=== PATIENT | female | born 1955 | race Hispanic/Latino ===

== ENCOUNTER 2020-05-31 10:33 | Inpatient (IN) | payer BC, OTHER ==
[~2020-05-31] VITALS: Ht 154.9 cm; Wt 87.6 kg
[2020-05-31 12:40] LABS: BASOPHILS % (AUTO) 0.3 % (0.0-5.0); EOSINOPHILS % (AUTO) 2.2 % (0.0-8.0); HEMATOCRIT 40.7 % (36-48); LYMPHOCYTES % (AUTO) 11.5 % (21.0-51.0); MEAN CORPUSCULAR HEMOGLOBIN 30.4 pg (27.0-33.0); MEAN CORPUSCULAR HGB CONC 34.2 g/dL (32.0-36.0); MEAN CORPUSCULAR VOLUME 89.1 fL (79-99); MONOCYTES % (AUTO) 8.8 % (3.0-13.0); NEUTROPHILS % (AUTO) 76.9 % (40.0-77.0); PLATELET COUNT (AUTO) 218 K/uL (130-400); RED BLOOD CELL COUNT(AUTO) 4.57 MIL/uL (4.00-5.50); RED CELL DISTRIBUTION WIDTH 12.7 % (11.0-15.5); WHITE BLOOD COUNT (AUTO) 9.6 K/uL (4.8-10.8)
[2020-05-31] MEDS ORDERED: AZITHROMYCIN 500MG+NS 250ML 250 ML IV ONE (12:58)
[2020-05-31] MEDS ORDERED: DEXAMETHASONE 4 MG TAB ONE (12:58)
[2020-05-31 13:06] LABS: ALBUMIN 2.3 g/dL (3.5-5.0); BILIRUBIN,TOTAL 1.3 mg/dL (0.2-1.0); CREATININE 1.4 mg/dL (0.5-1.5); POTASSIUM 3.8 mmol/L (3.5-5.1)
[2020-05-31] MEDS ORDERED: IOHEXOL-350 75 ML VIAL IV ONE (14:02)
[2020-05-31] MEDS ORDERED: ERGOCALCIFEROL (VITAMIN D2) 50,000 UNIT CAPSULE PO ONE (16:30)
[2020-05-31] MEDS: CEFTRIAXONE SODIUM 1 GM IVP SCH (16:30)
[2020-05-31] MEDS ORDERED: DOXYCYCLINE 100MG+NS 250ML IV SCH (16:30)
[2020-05-31] MEDS ORDERED: ERGOCALCIFEROL (VITAMIN D2) 50,000 UNIT CAPSULE ONE (16:57)
[2020-05-31] MEDS ORDERED: CEFTRIAXONE SODIUM 1 GM ONE (16:58)
[2020-05-31] MEDS ORDERED: SODIUM CHLORIDE 0.9% 100 ML IV ONE (16:58)
[2020-05-31] MEDS ORDERED: DOXYCYCLINE 100MG+NS 250ML 250 ML IV ONE (16:58)
[2020-05-31] MEDS: PHARMACY COMMUNICATION MISC SCH (17:00)
[2020-05-31] MEDS ORDERED: ONDANSETRON HCL 4 MG/2 ML VIAL IVP PRN (17:15)
[2020-05-31] MEDS ORDERED: ACETAMINOPHEN 325 MG TAB PO PRN (17:15)
[2020-05-31 17:20] LABS: HEMOGLOBIN A1C 7.1 % (4.0-6.0)
[2020-05-31] MEDS: METHYLPREDNISOLONE SOD SUCC 40MG/ML 1ML IVP SCH (21:00)
[2020-05-31] MEDS: DOXYCYCLINE 100MG+NS 250ML 250 ML IV SCH (21:00)
[2020-05-31] MEDS: ENOXAPARIN SODIUM 100 MG/1 ML SQ SCH (21:00)
[2020-05-31] MEDS ORDERED: ENOXAPARIN SODIUM 80 MG/0.8 ML SQ ONE (21:50)
[2020-05-31] MEDS ORDERED: METHYLPREDNISOLONE SOD SUCC 40MG/ML 1ML ONE (21:51)
[2020-06-01] MEDS: PHARMACY COMMUNICATION MISC SCH ×4 (01:00→19:39)
[2020-06-01] MEDS: CEFTRIAXONE SODIUM 1 GM IVP SCH ×2 (04:30→16:30)
[2020-06-01 05:14] LABS: BASOPHILS % (AUTO) 0.2 % (0.0-5.0); EOSINOPHILS % (AUTO) 0.1 % (0.0-8.0); HEMATOCRIT 42.4 % (36-48); LYMPHOCYTES % (AUTO) 15.8 % (21.0-51.0); MEAN CORPUSCULAR HEMOGLOBIN 29.8 pg (27.0-33.0); MEAN CORPUSCULAR VOLUME 90.2 fL (79-99); MONOCYTES % (AUTO) 2.6 % (3.0-13.0); NEUTROPHILS % (AUTO) 80.6 % (40.0-77.0); PLATELET COUNT (AUTO) 229 K/uL (130-400); RED CELL DISTRIBUTION WIDTH 12.6 % (11.0-15.5); WHITE BLOOD COUNT (AUTO) 8.9 K/uL (4.8-10.8)
[2020-06-01 05:45] LABS: ALBUMIN 2.3 g/dL (3.5-5.0); BILIRUBIN,TOTAL 0.7 mg/dL (0.2-1.0); CREATININE 1.3 mg/dL (0.5-1.5); POTASSIUM 3.5 mmol/L (3.5-5.1); TOTAL PROTEIN, SERUM 8.4 g/dL (6.0-8.3)
[2020-06-01 05:57] LABS: CRP QUANTITATIVE 217.6 mg/L (0.00-9.0)
[2020-06-01] MEDS ORDERED: METHYLPREDNISOLONE SOD SUCC 40MG/ML 1ML ONE (08:25)
[2020-06-01] MEDS ORDERED: ENOXAPARIN SODIUM 100 MG/1 ML SQ ONE (08:25)
[2020-06-01] MEDS ORDERED: ZINC SULFATE 220 CAPSULE ONE (08:26)
[2020-06-01] MEDS ORDERED: DOXYCYCLINE 100MG+NS 250ML 250 ML IV ONE (08:26)
[2020-06-01] MEDS ORDERED: ZINC SULFATE 220 CAPSULE PO SCH (09:00)
[2020-06-01] MEDS: DOXYCYCLINE 100MG+NS 250ML 250 ML IV SCH (09:00)
[2020-06-01] MEDS: METHYLPREDNISOLONE SOD SUCC 40MG/ML 1ML IVP SCH ×3 (09:00→20:14)
[2020-06-01] MEDS: ENOXAPARIN SODIUM 100 MG/1 ML SQ SCH ×2 (09:00→20:15)
[2020-06-01] MEDS: ASCORBIC ACID 500 MG TAB PO SCH (09:00)
[2020-06-01 12:21] VITALS: BP 110/68
[2020-06-01] MEDS ORDERED: AEC81 PO (14:32)
[2020-06-01 16:06] VITALS: BP 129/89
--- NOTE | 2020-06-01 17:20 | NUR ---
INITIAL SW spoke with patient. She states she lives alone. No home services or DME. Patient is able to complete ADL's independently and drives. 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 CP is MD at [facility]. [facility]acy [facility] in [place]. DCP is home. Addendum: 06/01/20 at 1723 by VINI DOMINGUEZ SS Amended: Links added.
[2020-06-01] MEDS: DOXYCYCLINE HYCLATE 100 MG TABLET PO SCH (20:15)
[2020-06-01] MEDS: FAMOTIDINE 20MG TAB 20 MG TAB PO SCH (20:15)
[2020-06-01 20:24] VITALS: BP 116/63
[2020-06-02] VITALS (7 sets, daily range): BP systolic 107–138; BP diastolic 60–92
[2020-06-02] MEDS: CEFTRIAXONE SODIUM 1 GM IVP SCH ×2 (04:15→15:45)
--- NOTE | 2020-06-02 05:56 | NUR ---
Bradycardia Patient HR was dropping as low as 37 while sleeping. When she was checked on her HR would rise to mid 50s. A couple of minutes after being awaken her HR jumped to 130s while in the restroom and on the way back she called out stating that she feels sweaty, clammy, & light-headed. Her blood sugar was checked and it was 166. Her vitals were checked as well (HR 64, O2 96% on room, & BP 116/64). When asked about her medical history, she stated that she has not been diagnosed with anything. She was informed to call now for assistance when getting up to go to the restroom for her safety. She is in her bed resting peacefully now showing no S/S of distress. Vitals are stable & she is being closely monitored.
[2020-06-02 07:00] LABS: ALBUMIN 2.2 g/dL (3.5-5.0); BILIRUBIN,TOTAL 0.4 mg/dL (0.2-1.0); CREATININE 1.4 mg/dL (0.5-1.5); CRP QUANTITATIVE 106.3 mg/L (0.00-9.0); TOTAL PROTEIN, SERUM 7.9 g/dL (6.0-8.3)
[2020-06-02] MEDS: METHYLPREDNISOLONE SOD SUCC 40MG/ML 1ML IVP SCH ×3 (08:42→19:59)
[2020-06-02] MEDS: DOXYCYCLINE HYCLATE 100 MG TABLET PO SCH ×2 (08:42→20:00)
[2020-06-02] MEDS: ASCORBIC ACID 500 MG TAB PO SCH (08:43)
[2020-06-02] MEDS: PHARMACY COMMUNICATION MISC SCH ×3 (09:00→20:00)
[2020-06-02 09:52] LABS: CREATINE KINASE, TOTAL 74 U/L (21-232); MYOGLOBIN 54 ng/mL (10-92); TROPONIN I < 0.04 ng/mL (0.00-0.06)
[2020-06-02] MEDS: ENOXAPARIN SODIUM 100 MG/1 ML SQ SCH ×2 (10:44→20:00)
[2020-06-02] MEDS: ZINC SULFATE 220 CAPSULE PO SCH (11:04)
[2020-06-02 11:43] LABS: MAGNESIUM 2.1 mg/dL (1.80-2.40); THYROID STIMULATING HORMONE 0.44 uIU/mL (0.36-3.74)
[2020-06-02 15:41] LABS: BASOPHILS % (AUTO) 0.1 % (0.0-5.0); HEMATOCRIT 42.5 % (36-48); LYMPHOCYTES % (AUTO) 10.4 % (21.0-51.0); MEAN CORPUSCULAR HEMOGLOBIN 30.2 pg (27.0-33.0); MEAN CORPUSCULAR HGB CONC 32.5 g/dL (32.0-36.0); MONOCYTES % (AUTO) 2.8 % (3.0-13.0); NEUTROPHILS % (AUTO) 86.1 % (40.0-77.0); PLATELET COUNT (AUTO) 227 K/uL (130-400); RED BLOOD CELL COUNT(AUTO) 4.57 MIL/uL (4.00-5.50); RED CELL DISTRIBUTION WIDTH 13.2 % (11.0-15.5); WHITE BLOOD COUNT (AUTO) 14.1 K/uL (4.8-10.8)
[2020-06-02] MEDS: FAMOTIDINE 20MG TAB 20 MG TAB PO SCH (20:00)
[2020-06-03] MEDS: CEFTRIAXONE SODIUM 1 GM IVP SCH ×2 (03:43→16:32)
[2020-06-03 03:56] VITALS: BP 123/59
[2020-06-03 04:31] LABS: BASOPHILS % (AUTO) 0.1 % (0.0-5.0); HEMATOCRIT 37.7 % (36-48); LYMPHOCYTES % (AUTO) 11.3 % (21.0-51.0); MEAN CORPUSCULAR HEMOGLOBIN 29.6 pg (27.0-33.0); MEAN CORPUSCULAR HGB CONC 33.2 g/dL (32.0-36.0); MEAN CORPUSCULAR VOLUME 89.3 fL (79-99); MONOCYTES % (AUTO) 3.3 % (3.0-13.0); NEUTROPHILS % (AUTO) 84.6 % (40.0-77.0); PLATELET COUNT (AUTO) 259 K/uL (130-400); RED BLOOD CELL COUNT(AUTO) 4.22 MIL/uL (4.00-5.50); RED CELL DISTRIBUTION WIDTH 12.8 % (11.0-15.5); WHITE BLOOD COUNT (AUTO) 10.1 K/uL (4.8-10.8)
[2020-06-03 05:12] LABS: ALBUMIN 2.1 g/dL (3.5-5.0); BILIRUBIN,TOTAL 0.2 mg/dL (0.2-1.0); CREATININE 1.3 mg/dL (0.5-1.5); CRP QUANTITATIVE 55.2 mg/L (0.00-9.0); POTASSIUM 4.2 mmol/L (3.5-5.1); TOTAL PROTEIN, SERUM 7.1 g/dL (6.0-8.3)
[2020-06-03 08:00] VITALS: BP 126/56
[2020-06-03] MEDS: ASCORBIC ACID 500 MG TAB PO SCH (08:47)
[2020-06-03] MEDS: METHYLPREDNISOLONE SOD SUCC 40MG/ML 1ML IVP SCH ×3 (08:47→20:10)
[2020-06-03] MEDS: DOXYCYCLINE HYCLATE 100 MG TABLET PO SCH ×2 (08:47→20:10)
[2020-06-03] MEDS: PHARMACY COMMUNICATION MISC SCH ×2 (08:48→16:33)
[2020-06-03] MEDS: ENOXAPARIN SODIUM 100 MG/1 ML SQ SCH ×2 (08:48→20:11)
[2020-06-03 11:00] VITALS: BP 147/66
[2020-06-03] MEDS: ZINC SULFATE 220 CAPSULE PO SCH (12:13)
[2020-06-03 16:00] VITALS: BP 137/55
[2020-06-03 19:45] VITALS: BP 124/69
[2020-06-03] MEDS: FAMOTIDINE 20MG TAB 20 MG TAB PO SCH (20:10)
[2020-06-03 23:30] VITALS: BP 125/52
[2020-06-04] VITALS (9 sets, daily range): BP systolic 116–163; BP diastolic 42–76
[2020-06-04] MEDS: PHARMACY COMMUNICATION MISC SCH ×3 (00:41→16:42)
[2020-06-04] MEDS: CEFTRIAXONE SODIUM 1 GM IVP SCH ×2 (04:41→16:18)
--- NOTE | 2020-06-04 07:24 | NUR ---
Bradycardia patient still having HR 30-40 at rest and while sleeping. HR still going up to 120-130's while ambulating, still complaining of dizziness while standing up. MD on the case aware still denies any cardiac history,only reports Asthma her past medical history.Continues to monitor patient as we wait for additional orders
[2020-06-04] MEDS: METHYLPREDNISOLONE SOD SUCC 40MG/ML 1ML IVP SCH ×3 (08:55→19:55)
[2020-06-04] MEDS: DOXYCYCLINE HYCLATE 100 MG TABLET PO SCH ×2 (08:55→19:55)
[2020-06-04] MEDS: ASCORBIC ACID 500 MG TAB PO SCH (08:55)
[2020-06-04] MEDS: ENOXAPARIN SODIUM 100 MG/1 ML SQ SCH ×2 (08:56→19:55)
[2020-06-04 11:47] LABS: CREATININE 1.3 mg/dL (0.5-1.5); CRP QUANTITATIVE 32.9 mg/L (0.00-9.0)
[2020-06-04] MEDS: ZINC SULFATE 220 CAPSULE PO SCH (12:47)
[2020-06-04] MEDS ORDERED: SODIUM CHLORIDE 0.9% 250 ML IV ONE (17:40)
[2020-06-04] MEDS: FAMOTIDINE 20MG TAB 20 MG TAB PO SCH (19:55)
[2020-06-05] MEDS: PHARMACY COMMUNICATION MISC SCH ×3 (01:00→17:00)
[2020-06-05 03:45] VITALS: BP 131/60
[2020-06-05] MEDS: CEFTRIAXONE SODIUM 1 GM IVP SCH ×2 (04:16→16:09)
[2020-06-05 04:21] LABS: HEMATOCRIT 37.9 % (36-48); LYMPHOCYTES % (AUTO) 16.8 % (21.0-51.0); MEAN CORPUSCULAR HEMOGLOBIN 29.7 pg (27.0-33.0); MEAN CORPUSCULAR HGB CONC 33.5 g/dL (32.0-36.0); MEAN CORPUSCULAR VOLUME 88.6 fL (79-99); NEUTROPHILS % (AUTO) 77.5 % (40.0-77.0); PLATELET COUNT (AUTO) 282 K/uL (130-400); RED BLOOD CELL COUNT(AUTO) 4.28 MIL/uL (4.00-5.50); RED CELL DISTRIBUTION WIDTH 12.7 % (11.0-15.5); WHITE BLOOD COUNT (AUTO) 8.1 K/uL (4.8-10.8)
[2020-06-05 04:55] LABS: ALBUMIN 2.3 g/dL (3.5-5.0); BILIRUBIN,TOTAL 0.4 mg/dL (0.2-1.0); CREATININE 1.1 mg/dL (0.5-1.5); CRP QUANTITATIVE 18.7 mg/L (0.00-9.0); POTASSIUM 4.1 mmol/L (3.5-5.1); TOTAL PROTEIN, SERUM 6.9 g/dL (6.0-8.3)
[2020-06-05] MEDS: METHYLPREDNISOLONE SOD SUCC 40MG/ML 1ML IVP SCH ×3 (08:44→19:33)
[2020-06-05] MEDS: ENOXAPARIN SODIUM 100 MG/1 ML SQ SCH ×2 (08:45→19:33)
[2020-06-05] MEDS: ASCORBIC ACID 500 MG TAB PO SCH (08:45)
[2020-06-05] MEDS: DOXYCYCLINE HYCLATE 100 MG TABLET PO SCH ×2 (08:45→19:33)
[2020-06-05 09:11] VITALS: BP 154/72
[2020-06-05 11:40] VITALS: BP 123/82
[2020-06-05] MEDS: ZINC SULFATE 220 CAPSULE PO SCH (13:33)
[2020-06-05 15:44] VITALS: BP 119/62
[2020-06-05 19:00] VITALS: BP 127/69
[2020-06-05] MEDS: FAMOTIDINE 20MG TAB 20 MG TAB PO SCH (19:33)
[2020-06-05 23:18] VITALS: BP 145/73
[2020-06-06] MEDS: PHARMACY COMMUNICATION MISC SCH ×2 (00:04→08:28)
[2020-06-06 03:10] VITALS: BP 132/58
[2020-06-06] MEDS: CEFTRIAXONE SODIUM 1 GM IVP SCH (05:00)
[2020-06-06 05:17] LABS: BASOPHILS % (AUTO) 0.1 % (0.0-5.0); HEMATOCRIT 38.6 % (36-48); MEAN CORPUSCULAR HGB CONC 33.7 g/dL (32.0-36.0); MEAN CORPUSCULAR VOLUME 89.1 fL (79-99); MONOCYTES % (AUTO) 5.2 % (3.0-13.0); NEUTROPHILS % (AUTO) 76.7 % (40.0-77.0); PLATELET COUNT (AUTO) 268 K/uL (130-400); RED BLOOD CELL COUNT(AUTO) 4.33 MIL/uL (4.00-5.50); RED CELL DISTRIBUTION WIDTH 12.7 % (11.0-15.5); WHITE BLOOD COUNT (AUTO) 8.7 K/uL (4.8-10.8)
[2020-06-06 05:54] LABS: ALBUMIN 2.1 g/dL (3.5-5.0); BILIRUBIN,TOTAL 0.3 mg/dL (0.2-1.0); CREATININE 1.1 mg/dL (0.5-1.5); CRP QUANTITATIVE 11.9 mg/L (0.00-9.0); TOTAL PROTEIN, SERUM 6.8 g/dL (6.0-8.3)
[2020-06-06 08:06] VITALS: BP 129/54
[2020-06-06] MEDS: METHYLPREDNISOLONE SOD SUCC 40MG/ML 1ML IVP SCH ×2 (08:27→13:17)
[2020-06-06] MEDS: ASCORBIC ACID 500 MG TAB PO SCH (08:28)
[2020-06-06] MEDS: DOXYCYCLINE HYCLATE 100 MG TABLET PO SCH (08:28)
[2020-06-06] MEDS: ENOXAPARIN SODIUM 100 MG/1 ML SQ SCH (08:29)
[2020-06-06] MEDS: ZINC SULFATE 220 CAPSULE PO SCH (11:22)
[2020-06-06 12:23] VITALS: BP 113/67
[2020-06-06] MEDS ORDERED: DEXA6TAB PO (14:30)
[2020-06-06] MEDS ORDERED: APIX2.5T PO (14:30)
--- NOTE | 2020-06-06 16:13 | NUR ---
Discharge note\ Pt d/c to home. vss. d/c instruction review and given with patient. prescription given. educational material given . iv removed. pt transported via weelchair to personal vehicle. tele pack remove and return
== END 2020-06-06 16:25 | disposition home or self-care (01) | DRG 177 ==
LOC: EDH 10:33 → EDHIP 16:29 → 4AH 06-01 11:54
PROVIDERS: ADMIT Hospitalist; ATTEND Hospitalist
PROC: XW13325 Transfusion of Convalescent Plasma (Nonautologous) into Peripheral Vein, Percutaneous Approach, New Technology Group 5 (ICD-10-PCS; principal; 2020-06-04)
DX: U07.1 COVID-19 (principal); J96.00 Acute respiratory failure, unspecified whether with hypoxia or hypercapnia; J12.89 Other viral pneumonia; R00.0 Tachycardia, unspecified; E66.01 Morbid (severe) obesity due to excess calories; Z68.38 Body mass index [BMI] 38.0-38.9, adult; Z88.0 Allergy status to penicillin; Z88.5 Allergy status to narcotic agent; Z90.49 Acquired absence of other specified parts of digestive tract
CPT/HCPCS: 36415; 36430; 71045; 71275; 80048; 80053; 82550; 82728; 82948; 83036; 83615; 83735; 83874; 84145; 84443; 84484; 85025; 85378; 86140; 86850; 86900; 86901; 86927; 87426; 93005; 93970; 94760; G0378; J0456; J0696; J1650; J2920; J3490; J7050; J8540; Q9967; U0003

== ENCOUNTER → 2020-07-03 | Outpatient (CLI) | payer BC ==
[~2020-07-03] MED LIST: AEC81 PO; APIX2.5T PO; DEXA6TAB PO
== END | disposition home or self-care (01) ==
LOC: RAH 10:14
PROVIDERS: ATTEND Family Medicine
DX: N31.9 Neuromuscular dysfunction of bladder, unspecified (principal)
CPT/HCPCS: 76770

== ENCOUNTER 2021-12-19 15:15 | Observation (INO) | payer BC, OTHER ==
[~2021-12-19] VITALS: Ht 157.5 cm; Wt 90.6 kg
[2021-12-19 15:47] LABS: BASOPHILS % (AUTO) 0.5 % (0.0-5.0); EOSINOPHILS % (AUTO) 0.7 % (0.0-8.0); HEMATOCRIT 44.1 % (36-48); LYMPHOCYTES % (AUTO) 10.3 % (21.0-51.0); MEAN CORPUSCULAR HEMOGLOBIN 30.4 pg (27.0-33.0); MEAN CORPUSCULAR HGB CONC 33.3 g/dL (32.0-36.0); MEAN CORPUSCULAR VOLUME 91.1 fL (79-99); NEUTROPHILS % (AUTO) 78.9 % (40.0-77.0); PLATELET COUNT (AUTO) 124 K/uL (130-400); RED BLOOD CELL COUNT(AUTO) 4.84 MIL/uL (4.00-5.50); RED CELL DISTRIBUTION WIDTH 14.1 % (11.0-15.5); WHITE BLOOD COUNT (AUTO) 14.1 K/uL (4.8-10.8)
[2021-12-19 15:50] LABS: APPEARANCE,URINE SL CLOUDY (CLEAR); BILIRUBIN,URINE NEGATIVE (NEGATIVE); COLOR,URINE YELLOW (YELLOW); GLUCOSE, URINE (UA) NEGATIVE (NEGATIVE); KETONES,URINE NEGATIVE (NEGATIVE); LEUKOCYTE ESTERASE ,URINE MODERATE (NEGATIVE); NITRATE,URINE NEGATIVE (NEGATIVE); OCCULT BLOOD,URINE TRACE-INTACT (NEGATIVE); PROTEIN,URINE TRACE mg/dL (NEGATIVE); UROBILINOGEN,URINE 0.2 mg/dL (0.2-1.0)
[2021-12-19 15:59] LABS: AMPHET/METH SCREEN,URINE NEGATIVE (NEGATIVE); BARBITURATE SCREEN, URINE NEGATIVE (NEGATIVE); BENZODIAZEPINES SCREEN,URINE NEGATIVE (NEGATIVE); CANNABINOID SCREEN,URINE NEGATIVE (NEGATIVE); COCAINE SCREEN,URINE NEGATIVE (NEGATIVE); OPIATE SCREEN,URINE NEGATIVE (NEGATIVE); PHENCYCLIDINE SCREEN,URINE NEGATIVE (NEGATIVE)
[2021-12-19 16:05] LABS: BACTERIA,URINE Moderate /HPF (None Seen)
[2021-12-19 16:12] LABS: CREATININE 2.9 mg/dL (0.5-1.5); POTASSIUM 4.4 mmol/L (3.5-5.1)
[2021-12-19 16:21] LABS: B-TYPE NATRIURETIC PEPTIDE 136 pg/mL (0-100); BILIRUBIN,TOTAL 0.7 mg/dL (0.2-1.0); TOTAL PROTEIN, SERUM 7.8 g/dL (6.0-8.3)
[2021-12-19] MEDS ORDERED: ASPIRIN 325MG TAB PO ONE (16:30)
[2021-12-19] MEDS ORDERED: ENOXAPARIN SODIUM 100 MG/1 ML SQ ONE (16:30)
[2021-12-19] MEDS ORDERED: [UNRECOGNIZED DRUG - REMARK] MISC SCH (17:00)
[2021-12-19] MEDS ORDERED: ONDANSETRON 4MG INJ IVP PRN (17:00)
[2021-12-19] MEDS ORDERED: SOLU-MEDROL 125MG VIAL IVP ONE (17:00)
[2021-12-19] MEDS ORDERED: ACETAMINOPHEN 325 MG TAB PO PRN (17:00)
[2021-12-19] MEDS ORDERED: HYDRALAZINE 20MG/ML VIAL IV PRN (17:00)
[2021-12-19] MEDS ORDERED: LACTULOSE 20 GM/30 ML UDCUP PO PRN (17:00)
[2021-12-19] MEDS ORDERED: LABETALOL 20MG SYG IV PRN (17:00)
[2021-12-19] MEDS ORDERED: ALBUTEROL 0.083% 2.5 MG/3 ML INH IH PRN (17:00)
[2021-12-19] MEDS ORDERED: SOLU-MEDROL 125MG VIAL ONE (19:30)
[2021-12-19 19:47] VITALS: BP 109/48
[2021-12-19] MEDS ORDERED: 0.9% NACL 250ML 250 ML ONE (19:56)
[2021-12-19] MEDS: DEXTROSE 5 %-0.45 % NACL 1,000 ML IV SCH (20:10)
[2021-12-19] MEDS: DOXYCYCLINE 100MG+NS 250ML IV SCH (20:11)
[2021-12-19] MEDS: INSULIN HUMULIN R 100 UNIT/ML 3ML SQ SCH (21:00)
[2021-12-19] MEDS ORDERED: NAPR-1023 PO (21:09)
[2021-12-19] MEDS ORDERED: ONDA4TAB10 SL (21:09)
[2021-12-19] MEDS ORDERED: LEVO500T90 PO (21:09)
[2021-12-19] MEDS ORDERED: NITROGLYCERIN 0.4 MG SL TAB SL PRN (22:00)
[2021-12-19 23:24] VITALS: BP 132/58
[2021-12-20] MEDS ORDERED: MAG/ALUM/SIMETH 30 ML UDCUP ONE (01:24)
[2021-12-20] MEDS ORDERED: MAG/ALUM/SIMETH 30 ML UDCUP PO ONE (01:30)
[2021-12-20] MEDS ORDERED: DIPHENHYDRAMINE HCL 25 MG CAPSULE PO STA (03:00)
[2021-12-20] MEDS ORDERED: DIPHENHYDRAMINE HCL 25 MG CAPSULE ONE (04:08)
[2021-12-20 04:13] VITALS: BP 126/54
[2021-12-20 04:53] LABS: BASOPHILS % (AUTO) 0.3 % (0.0-5.0); HEMATOCRIT 41.9 % (36-48); LYMPHOCYTES % (AUTO) 10.7 % (21.0-51.0); MEAN CORPUSCULAR HEMOGLOBIN 29.5 pg (27.0-33.0); MEAN CORPUSCULAR HGB CONC 32.7 g/dL (32.0-36.0); MEAN CORPUSCULAR VOLUME 90.1 fL (79-99); NEUTROPHILS % (AUTO) 83.9 % (40.0-77.0); PLATELET COUNT (AUTO) 118 K/uL (130-400); RED BLOOD CELL COUNT(AUTO) 4.65 MIL/uL (4.00-5.50); RED CELL DISTRIBUTION WIDTH 14.1 % (11.0-15.5); WHITE BLOOD COUNT (AUTO) 9.7 K/uL (4.8-10.8)
[2021-12-20 05:32] LABS: CREATININE 2.6 mg/dL (0.5-1.5); MAGNESIUM 2.3 mg/dL (1.80-2.40); PHOSPHORUS 2.6 mg/dL (2.5-4.9); POTASSIUM 4.9 mmol/L (3.5-5.1); THYROID STIMULATING HORMONE 0.61 uIU/mL (0.36-3.74)
[2021-12-20 05:37] LABS: HEMOGLOBIN A1C 6.5 % (4.0-6.0)
[2021-12-20] MEDS: INSULIN HUMULIN R 100 UNIT/ML 3ML SQ SCH ×4 (06:45→20:09)
[2021-12-20 08:35] VITALS: BP 179/67
[2021-12-20] MEDS: PANTOPRAZOLE 40 MG TAB DR PO SCH (08:45)
[2021-12-20] MEDS: DOXYCYCLINE 100MG+NS 250ML IV SCH (08:46)
[2021-12-20] MEDS: ASPIRIN 81 MG EC TAB PO SCH (08:46)
[2021-12-20] MEDS: NYSTATIN 15 GM POWDER TP SCH ×2 (09:00→21:00)
[2021-12-20 11:30] VITALS: BP 131/56
[2021-12-20] MEDS: DEXTROSE 5 %-0.45 % NACL 1,000 ML IV SCH (13:00)
[2021-12-20] MEDS ORDERED: ENOXAPARIN SODIUM 30 MG/0.3 ML SQ SCH (15:06)
[2021-12-20 16:00] VITALS: BP 131/50
[2021-12-20] MEDS ORDERED: RENAL DOSE IV PRN (18:30)
[2021-12-20] MEDS ORDERED: LEVOFLOXACIN 500 MG/D5W 100 ML 100 ML IV SCH ×2 (18:30)
[2021-12-20] MEDS: MEROPENEM 500 MG VIAL IVP SCH (18:41)
[2021-12-20] MEDS: PREDNISONE 20 MG TABLET PO SCH (20:15)
[2021-12-20 20:36] VITALS: BP 147/63
[2021-12-21] VITALS (7 sets, daily range): BP systolic 105–160; BP diastolic 51–82
[2021-12-21] MEDS ORDERED: DIPHENHYDRAMINE HCL 25 MG CAPSULE PO PRN (01:03)
[2021-12-21 05:18] LABS: CREATININE 2.3 mg/dL (0.5-1.5); POTASSIUM 4.9 mmol/L (3.5-5.1)
[2021-12-21 05:33] LABS: BASOPHILS % (AUTO) 0.2 % (0.0-5.0); HEMATOCRIT 38.7 % (36-48); LYMPHOCYTES % (AUTO) 13.4 % (21.0-51.0); MEAN CORPUSCULAR HEMOGLOBIN 29.2 pg (27.0-33.0); MEAN CORPUSCULAR VOLUME 91.3 fL (79-99); MONOCYTES % (AUTO) 6.2 % (3.0-13.0); NEUTROPHILS % (AUTO) 76.5 % (40.0-77.0); PLATELET COUNT (AUTO) 135 K/uL (130-400); RED BLOOD CELL COUNT(AUTO) 4.24 MIL/uL (4.00-5.50); RED CELL DISTRIBUTION WIDTH 14.1 % (11.0-15.5); WHITE BLOOD COUNT (AUTO) 12.3 K/uL (4.8-10.8)
[2021-12-21] MEDS: INSULIN HUMULIN R 100 UNIT/ML 3ML SQ SCH ×4 (06:02→20:05)
[2021-12-21] MEDS: MEROPENEM 500 MG VIAL IVP SCH ×2 (06:04→18:48)
[2021-12-21] MEDS ORDERED: INSULIN GLARGINE 100 UNITS/ML 10 ML VIAL SQ SCH ×2 (08:00→21:00)
[2021-12-21] MEDS: PANTOPRAZOLE 40 MG TAB DR PO SCH (08:53)
[2021-12-21] MEDS: PREDNISONE 20 MG TABLET PO SCH ×2 (08:53→20:37)
[2021-12-21] MEDS: ASPIRIN 81 MG EC TAB PO SCH (08:53)
[2021-12-21] MEDS: DOXYCYCLINE 100MG+NS 250ML IV SCH (08:56)
[2021-12-21] MEDS: DEXTROSE 5 %-0.45 % NACL 1,000 ML IV SCH ×2 (09:00→17:22)
[2021-12-21] MEDS ORDERED: 0.9% NACL 250ML 250 ML ONE (09:03)
[2021-12-21] MEDS: NYSTATIN 15 GM POWDER TP SCH ×2 (09:37→20:38)
[2021-12-21] MEDS ORDERED: DiphenhydrAMINE HCL 50 MG/ML VIAL IV PRN (19:30)
[2021-12-22 04:28] VITALS: BP 149/59
[2021-12-22] MEDS: DEXTROSE 5 %-0.45 % NACL 1,000 ML IV SCH (04:35)
[2021-12-22] MEDS: INSULIN HUMULIN R 100 UNIT/ML 3ML SQ SCH ×2 (05:31→11:45)
[2021-12-22 05:34] LABS: HEMATOCRIT 40.9 % (36-48); MEAN CORPUSCULAR HEMOGLOBIN 29.5 pg (27.0-33.0); MEAN CORPUSCULAR HGB CONC 32.3 g/dL (32.0-36.0); MEAN CORPUSCULAR VOLUME 91.3 fL (79-99); RED BLOOD CELL COUNT(AUTO) 4.48 MIL/uL (4.00-5.50); RED CELL DISTRIBUTION WIDTH 14.1 % (11.0-15.5); WHITE BLOOD COUNT (AUTO) 13.1 K/uL (4.8-10.8)
[2021-12-22 05:54] LABS: ALBUMIN 2.4 g/dL (3.5-5.0); BILIRUBIN,TOTAL 0.4 mg/dL (0.2-1.0); CREATININE 2.4 mg/dL (0.5-1.5); POTASSIUM 5.1 mmol/L (3.5-5.1); TOTAL PROTEIN, SERUM 6.6 g/dL (6.0-8.3)
[2021-12-22 08:00] VITALS: BP 141/62
[2021-12-22] MEDS ORDERED: 0.9% NACL 250ML 250 ML ONE (08:38)
[2021-12-22] MEDS: DOXYCYCLINE 100MG+NS 250ML IV SCH (08:59)
[2021-12-22] MEDS: PREDNISONE 20 MG TABLET PO SCH (09:01)
[2021-12-22] MEDS: ASPIRIN 81 MG EC TAB PO SCH (09:01)
[2021-12-22] MEDS: PANTOPRAZOLE 40 MG TAB DR PO SCH (09:01)
[2021-12-22] MEDS: NYSTATIN 15 GM POWDER TP SCH (09:02)
[2021-12-22] MEDS ORDERED: [UNRECOGNIZED DRUG - CODE] MC (11:13)
[2021-12-22] MEDS ORDERED: FLUC200T PO (11:13)
[2021-12-22] MEDS ORDERED: PRED20TA3 PO (11:13)
[2021-12-22] MEDS ORDERED: LEVO250T43 PO ×2 (11:13)
[2021-12-22 12:00] VITALS: BP 133/55
[2021-12-22] MEDS ORDERED: LEVOFLOXACIN 250 MG/D5W 50ML 50 ML IVPB SCH (18:30)
== END 2021-12-22 15:20 | disposition home or self-care (01) ==
LOC: EDH 15:15 → EDHIP 16:51 → 3AH 19:10
PROVIDERS: ADMIT Internal Medicine Critical Care Medicine; ATTEND Internal Medicine Critical Care Medicine
DX: R21 Rash and other nonspecific skin eruption (principal); B37.2 Candidiasis of skin and nail; Z20.822 Contact with and (suspected) exposure to COVID-19; R06.00 Dyspnea, unspecified; I21.4 Non-ST elevation (NSTEMI) myocardial infarction; N39.0 Urinary tract infection, site not specified; D72.829 Elevated white blood cell count, unspecified; N17.9 Acute kidney failure, unspecified; N18.4 Chronic kidney disease, stage 4 (severe); R79.89 Other specified abnormal findings of blood chemistry; R19.7 Diarrhea, unspecified; M19.90 Unspecified osteoarthritis, unspecified site; I24.9 Acute ischemic heart disease, unspecified; J45.909 Unspecified asthma, uncomplicated; N10 Acute pyelonephritis; D69.6 Thrombocytopenia, unspecified; T36.0X5A Adverse effect of penicillins, initial encounter; Z86.16 Personal history of COVID-19; Z88.0 Allergy status to penicillin; Z79.01 Long term (current) use of anticoagulants; Z79.82 Long term (current) use of aspirin; Z79.899 Other long term (current) drug therapy
CPT/HCPCS: 36415 ×4; 71045 ×2; 80048 ×2; 80053 ×2; 80305; 81001; 82550 ×3; 82948 ×11; 83036; 83630; 83735; 83874 ×3; 83880; 84100; 84145 ×2; 84443; 84484 ×4; 85025 ×3; 85027; 87088; 87493; 87635; 87804 ×2; 93005 ×2; 96361 ×2; 96365; 96366 ×2; 96372 ×4; 96375 ×2; 96376 ×2; 97161; 99291; G0378 ×69; J1650; J1815 ×5; J2185 ×3; J2930; J3490 ×4; J7042 ×3; J7050 ×3; Q0163 ×2

== ENCOUNTER → 2022-01-07 | Outpatient (CLI) | payer BC, OTHER ==
[~2022-01-07] MED LIST changes: -AEC81 PO; -APIX2.5T PO; -DEXA6TAB PO; +FLUC200T PO; +KETO10 PO; +LEVO250T43 PO; +MACR100 PO; +ONDA4TAB10 SL; +PRED20TA3 PO; +TAMS-1 PO; +[UNRECOGNIZED DRUG - CODE] MC
== END | disposition home or self-care (01) ==
LOC: RAH 09:27
PROVIDERS: ATTEND Family Medicine
DX: Z12.31 Encounter for screening mammogram for malignant neoplasm of breast (principal); N63.25 Unspecified lump in the left breast, overlapping quadrants
CPT/HCPCS: 77067

== ENCOUNTER 2022-01-08 11:24 | Emergency (ER) | payer BC, OTHER ==
[~2022-01-08] VITALS: Ht 157.5 cm; Wt 86.6 kg
[~2022-01-08 11:24] MED LIST changes: -KETO10 PO; -MACR100 PO; -TAMS-1 PO
[2022-01-08] MEDS ORDERED: ONDANSETRON 4MG INJ IVP SCH (12:30)
[2022-01-08] MEDS ORDERED: 0.9%NACL 1000ML 1,000 ML IV SCH ×2 (12:30→13:30)
[2022-01-08] MEDS ORDERED: KETOROLAC 30MG VIAL (30MG/ML) IV SCH (12:30)
[2022-01-08 12:48] LABS: BASOPHILS % (AUTO) 0.2 % (0.0-5.0); EOSINOPHILS % (AUTO) 2.1 % (0.0-8.0); HEMATOCRIT 44.8 % (36-48); LYMPHOCYTES % (AUTO) 17.6 % (21.0-51.0); MEAN CORPUSCULAR HEMOGLOBIN 28.9 pg (27.0-33.0); MEAN CORPUSCULAR HGB CONC 31.9 g/dL (32.0-36.0); MEAN CORPUSCULAR VOLUME 90.5 fL (79-99); MONOCYTES % (AUTO) 7.4 % (3.0-13.0); NEUTROPHILS % (AUTO) 72.3 % (40.0-77.0); PLATELET COUNT (AUTO) 124 K/uL (130-400); RED BLOOD CELL COUNT(AUTO) 4.95 MIL/uL (4.00-5.50); RED CELL DISTRIBUTION WIDTH 13.5 % (11.0-15.5); WHITE BLOOD COUNT (AUTO) 11.3 K/uL (4.8-10.8)
[2022-01-08 13:02] LABS: CREATININE 1.2 mg/dL (0.5-1.5); POTASSIUM 4.9 mmol/L (3.5-5.1)
[2022-01-08 13:07] LABS: ALBUMIN 3.1 g/dL (3.5-5.0); TOTAL PROTEIN, SERUM 6.6 g/dL (6.0-8.3)
[2022-01-08 14:27] LABS: APPEARANCE,URINE Clear (CLEAR); BILIRUBIN,URINE Negative (NEGATIVE); COLOR,URINE Yellow (YELLOW); GLUCOSE, URINE (UA) Negative (NEGATIVE); KETONES,URINE 15 mg/dL (NEGATIVE); LEUKOCYTE ESTERASE ,URINE Small (NEGATIVE); NITRATE,URINE Negative (NEGATIVE); OCCULT BLOOD,URINE Negative (NEGATIVE); PROTEIN,URINE Negative (NEGATIVE); UROBILINOGEN,URINE 0.2 mg/dL (0.2-1.0)
[2022-01-08 14:36] LABS: BACTERIA,URINE Few /HPF (None Seen)
[2022-01-08 14:37] LABS: MUCUS,URINE Rare LPF (None Seen); SQUAMOUS EPITHELIAL CELL,UR Few /HPF (0-2)
[2022-01-08] MEDS ORDERED: TAMS-1 PO (14:49)
[2022-01-08] MEDS ORDERED: MACR100 PO (14:49)
[2022-01-08] MEDS ORDERED: KETO10 PO (14:49)
[2022-01-08] MEDS ORDERED: NITROFURANTOIN MONOHYD/M-CRYST 100 MG CAPSULE PO ONE ×2 (15:00→15:34)
[2022-01-08] MEDS ORDERED: TAMSULOSIN HCL 0.4 MG CAP.ER.24H ONE (15:34)
[2022-01-08 15:36] VITALS: BP 150/61
[2022-01-08] MEDS ORDERED: TAMSULOSIN HCL 0.4 MG CAP.ER.24H PO SCH (16:00)
== END 2022-01-08 15:43 | disposition home or self-care (01) ==
LOC: EDH 11:24
DX: N20.0 Calculus of kidney (principal); N39.0 Urinary tract infection, site not specified; E11.9 Type 2 diabetes mellitus without complications; K21.9 Gastro-esophageal reflux disease without esophagitis; E66.9 Obesity, unspecified; R11.2 Nausea with vomiting, unspecified; Z88.0 Allergy status to penicillin; Z88.5 Allergy status to narcotic agent; Z79.1 Long term (current) use of non-steroidal anti-inflammatories (NSAID); Z79.52 Long term (current) use of systemic steroids; Z86.16 Personal history of COVID-19; Z90.49 Acquired absence of other specified parts of digestive tract; Z68.34 Body mass index [BMI] 34.0-34.9, adult
CPT/HCPCS: 36415; 71045; 74176; 80053; 81001; 83605; 83690; 84484; 85025; 96361; 96374; 96375; 99284; J1885; J2405

== ENCOUNTER 2022-05-10 05:56 | Day surgery (SDC) | payer OTHER ==
[2022-05-06 13:43] LABS: BASOPHILS % (AUTO) 0.6 % (0.0-5.0); EOSINOPHILS % (AUTO) 4.2 % (0.0-8.0); HEMATOCRIT 41.6 % (36-48); LYMPHOCYTES % (AUTO) 29.6 % (21.0-51.0); MEAN CORPUSCULAR HEMOGLOBIN 30.6 pg (27.0-33.0); MEAN CORPUSCULAR HGB CONC 32.9 g/dL (32.0-36.0); MEAN CORPUSCULAR VOLUME 92.9 fL (79-99); MONOCYTES % (AUTO) 6.8 % (3.0-13.0); NEUTROPHILS % (AUTO) 58.6 % (40.0-77.0); PLATELET COUNT (AUTO) 214 K/uL (130-400); RED BLOOD CELL COUNT(AUTO) 4.48 MIL/uL (4.00-5.50); RED CELL DISTRIBUTION WIDTH 13.1 % (11.0-15.5); WHITE BLOOD COUNT (AUTO) 9.7 K/uL (4.8-10.8)
[2022-05-06 13:50] LABS: APPEARANCE,URINE CLEAR (CLEAR); BILIRUBIN,URINE NEGATIVE (NEGATIVE); COLOR,URINE YELLOW (YELLOW); GLUCOSE, URINE (UA) NEGATIVE (NEGATIVE); KETONES,URINE NEGATIVE (NEGATIVE); LEUKOCYTE ESTERASE ,URINE NEGATIVE (NEGATIVE); NITRATE,URINE NEGATIVE (NEGATIVE); OCCULT BLOOD,URINE NEGATIVE (NEGATIVE); PH,URINE 5.5 (5.0-8.0); PROTEIN,URINE NEGATIVE (NEGATIVE); UROBILINOGEN,URINE 0.2 mg/dL (0.2-1.0)
[2022-05-06 13:57] LABS: INR 0.99 (0.85-1.15); PROTHROMBIN TIME 10.8 SEC (9.6-11.6)
[2022-05-06 13:59] LABS: PARTIAL THROMBOPLASTIN TIME 28.1 SEC (26.3-35.5)
[2022-05-06 14:01] LABS: ALBUMIN 3.6 g/dL (3.5-5.0); CREATININE 1.2 mg/dL (0.5-1.5); POTASSIUM 4.9 mmol/L (3.5-5.1); TOTAL PROTEIN, SERUM 7.9 g/dL (6.0-8.3)
[2022-05-07 15:27] VITALS: BP 184/79
[~2022-05-10] VITALS: Ht 157.5 cm; Wt 84.3 kg
[2022-05-10] VITALS (15 sets, daily range): BP systolic 61–148; BP diastolic 14–74
[~2022-05-10 05:56] MED LIST changes: +DULA0.75 SQ; -FLUC200T PO; -LEVO250T43 PO; -ONDA4TAB10 SL; -PRED20TA3 PO; +ROSU5TAB12 PO; -[UNRECOGNIZED DRUG - CODE] MC
[2022-05-10] MEDS ORDERED: CEFAZOLIN SODIUM 1 GM VIAL ONE (06:48)
[2022-05-10] MEDS ORDERED: 0.9%NACL 1000ML 1,000 ML IV ONE (06:48)
[2022-05-10] MEDS ORDERED: LIDOCAINE/PRILOCAINE CREAM 5GM TUBE TP ONE (07:17)
[2022-05-10] MEDS ORDERED: FAMOTIDINE 20MG VIAL IV ONE (10:38)
[2022-05-10] MEDS ORDERED: FENTANYL CITRATE PF 50 MCG/1 ML 2ML VIAL ONE (10:44)
[2022-05-10] MEDS ORDERED: GLYCOPYRROLATE 1 MG/5 ML SYRINGE ONE ×2 (10:44→13:47)
[2022-05-10] MEDS ORDERED: PROPOFOL 10 MG/ML 20ML VIAL IV ONE (10:44)
[2022-05-10] MEDS ORDERED: ROCURONIUM 10MG/1ML SYR 10 MG/ML ML ONE (10:44)
[2022-05-10] MEDS ORDERED: VANCOMYCIN KIT 1 GM/250 ML IV.KIT IV ONE (11:20)
[2022-05-10] MEDS ORDERED: ONDANSETRON 4MG INJ ONE (11:34)
[2022-05-10] MEDS ORDERED: BUPIVACAINE/PF 0.5% 30ML VIAL ONE (11:39)
[2022-05-10] MEDS ORDERED: NEOSTIGMINE 5MG/5ML SYR IV ONE (12:31)
[2022-05-10] MEDS ORDERED: HYDROMORPHONE 1 MG INJ ONE (13:35)
== END 2022-05-10 15:10 | disposition home or self-care (01) ==
LOC: DAH 05:56
PROVIDERS: ATTEND Student in an Organized Health Care Education/Training Program
DX: C50.912 Malignant neoplasm of unspecified site of left female breast (principal); I12.9 Hypertensive chronic kidney disease with stage 1 through stage 4 chronic kidney disease, or unspecified chronic kidney disease; E11.22 Type 2 diabetes mellitus with diabetic chronic kidney disease; N18.9 Chronic kidney disease, unspecified; J45.909 Unspecified asthma, uncomplicated; E78.5 Hyperlipidemia, unspecified; Z98.890 Other specified postprocedural states; Z90.49 Acquired absence of other specified parts of digestive tract; Z79.01 Long term (current) use of anticoagulants; Z79.899 Other long term (current) drug therapy
CPT/HCPCS: 80053; 85025; 85610; 85730; 87426; 81003; 36415; 71045; 93005; 38525; 19301; 82948 ×2; 88307; 76098; 78195; A6260; J3490 ×5; J3010; J1170; J2710; J7030; J2704; J2405; J3370; A9541; A4649 ×2; A4215; A4223; A4222; A4221; A4663; J0690

== ENCOUNTER 2022-06-09 10:28 | Day surgery (SDC) | payer OTHER ==
[2022-06-03 09:56] LABS: BASOPHILS % (AUTO) 0.9 % (0.0-5.0); EOSINOPHILS % (AUTO) 4.7 % (0.0-8.0); HEMATOCRIT 42.2 % (36-48); LYMPHOCYTES % (AUTO) 24.7 % (21.0-51.0); MEAN CORPUSCULAR HEMOGLOBIN 30.5 pg (27.0-33.0); MEAN CORPUSCULAR HGB CONC 33.6 g/dL (32.0-36.0); MEAN CORPUSCULAR VOLUME 90.8 fL (79-99); MONOCYTES % (AUTO) 6.3 % (3.0-13.0); NEUTROPHILS % (AUTO) 63.2 % (40.0-77.0); PLATELET COUNT (AUTO) 232 K/uL (130-400); RED BLOOD CELL COUNT(AUTO) 4.65 MIL/uL (4.00-5.50); RED CELL DISTRIBUTION WIDTH 13.2 % (11.0-15.5); WHITE BLOOD COUNT (AUTO) 8.9 K/uL (4.8-10.8)
[2022-06-08 09:04] VITALS: BP 174/71
[~2022-06-09] VITALS: Ht 154.9 cm; Wt 86.6 kg
[2022-06-09] VITALS (23 sets, daily range): BP systolic 105–161; BP diastolic 44–77
[~2022-06-09 10:28] MED LIST changes: +VANCOMYCIN 1G/250ML KIT 250 ML IV SCH
[2022-06-09] MEDS ORDERED: 0.9%NACL 1000ML 1,000 ML IV ONE (10:57)
[2022-06-09] MEDS ORDERED: VANCOMYCIN 1G/250ML KIT 250 ML IV ONE (10:57)
[2022-06-09] MEDS ORDERED: IBUP-2077 PO (11:09)
[2022-06-09] MEDS ORDERED: BUPIVACAINE/PF 0.25% 30ML VIAL IJ ONE (11:42)
[2022-06-09] MEDS ORDERED: PROPOFOL 10 MG/ML 20ML VIAL IV ONE (11:45)
[2022-06-09] MEDS ORDERED: MIDAZOLAM HCL 1 MG/ML 2ML VIAL ONE (11:45)
[2022-06-09] MEDS ORDERED: FENTANYL CITRATE PF 50 MCG/1 ML 2ML VIAL ONE (11:45)
[2022-06-09] MEDS ORDERED: ROCURONIUM 10MG/1ML SYR 10 MG/ML ML ONE (11:45)
[2022-06-09] MEDS ORDERED: LIDOCAINE HCL 1% 10 ML VIAL ONE (11:58)
[2022-06-09] MEDS ORDERED: VANCOMYCIN 1G VIAL IVPB ONE (12:35)
[2022-06-09] MEDS ORDERED: ONDANSETRON 4MG INJ ONE (12:45)
[2022-06-09] MEDS ORDERED: NEOSTIGMINE 5MG/5ML SYR IV ONE (12:57)
[2022-06-09] MEDS ORDERED: GLYCOPYRROLATE 1 MG/5 ML SYRINGE ONE ×2 (12:57→13:55)
[2022-06-09] MEDS ORDERED: DEXTROSE 50%-WATER 50 ML DISP.SYRIN IV ONE (13:27)
[2022-06-09] MEDS ORDERED: DiphenhydrAMINE HCL 50 MG/ML VIAL ONE (13:53)
[2022-06-09] MEDS ORDERED: IPRATROPIUM/ALBUTEROL SULFATE 3 ML SOLUTION IH ONE (13:59)
== END 2022-06-09 16:30 | disposition home or self-care (01) ==
LOC: DAH 10:28
PROVIDERS: ATTEND Student in an Organized Health Care Education/Training Program
DX: C50.912 Malignant neoplasm of unspecified site of left female breast (principal); E11.22 Type 2 diabetes mellitus with diabetic chronic kidney disease; I12.9 Hypertensive chronic kidney disease with stage 1 through stage 4 chronic kidney disease, or unspecified chronic kidney disease; N18.9 Chronic kidney disease, unspecified; E66.9 Obesity, unspecified; J45.909 Unspecified asthma, uncomplicated; F03.90 Unspecified dementia, unspecified severity, without behavioral disturbance, psychotic disturbance, mood disturbance, and anxiety; Z79.01 Long term (current) use of anticoagulants; Z79.899 Other long term (current) drug therapy; Z68.36 Body mass index [BMI] 36.0-36.9, adult; Z90.49 Acquired absence of other specified parts of digestive tract; Z98.890 Other specified postprocedural states; Z88.8 Allergy status to other drugs, medicaments and biological substances; Z88.6 Allergy status to analgesic agent; Z88.0 Allergy status to penicillin
CPT/HCPCS: 85025; 87426; 36415; 36561; 82948 ×3; 77001; 94640; A6207; A4606; C1788; J3370 ×2; J1200; J3010; J3490 ×4; J2710; J7030; J7070; J2250; J2704; J2405; J1644; A4930 ×2; A4215; A4223; A4222; A4221; A4663; 76000

== ENCOUNTER 2023-06-27 09:15 | Emergency (ER) | payer OTHER, MEDICARE ==
[~2023-06-27] VITALS: Ht 154.9 cm; Wt 78.9 kg
[~2023-06-27 09:15] MED LIST changes: +IBUP-2077 PO; -VANCOMYCIN 1G/250ML KIT 250 ML IV SCH
[2023-06-27 10:30] LABS: BASOPHILS # (AUTO) 0.04 K/uL (0.00-0.20); BASOPHILS % (AUTO) 0.8 % (0.0-5.0); EOSINOPHILS % (AUTO) 3.8 % (0.0-8.0); HEMATOCRIT 40.7 % (36-48); IMMATURE GRANULOCYTE ABSOLUTE 0.01 K/uL (0-1); LYMPHOCYTES # (AUTO) 1.5 K/uL (1.0-4.8); LYMPHOCYTES % (AUTO) 27.5 % (21.0-51.0); MEAN CORPUSCULAR HEMOGLOBIN 30.8 pg (27.0-33.0); MEAN CORPUSCULAR HGB CONC 32.9 g/dL (32.0-36.0); MEAN CORPUSCULAR VOLUME 93.6 fL (79-99); MONOCYTES # (AUTO) 0.6 K/uL (0.1-1.0); MONOCYTES % (AUTO) 11.2 % (3.0-13.0); NEUTROPHILS % (AUTO) 56.5 % (40.0-77.0); PLATELET COUNT (AUTO) 147 K/uL (130-400); RED BLOOD CELL COUNT(AUTO) 4.35 MIL/uL (4.00-5.50); RED CELL DISTRIBUTION WIDTH 14.5 % (11.0-15.5); WHITE BLOOD COUNT (AUTO) 5.3 K/uL (4.8-10.8)
[2023-06-27] MEDS ORDERED: KETOROLAC 30MG VIAL (30MG/ML) IVP ONE (10:30)
[2023-06-27] MEDS ORDERED: FAMOTIDINE 20MG VIAL IV ONE (10:30)
[2023-06-27] MEDS ORDERED: METOCLOPRAMIDE 10 MG/2 ML VIAL IVP ONE (10:30)
[2023-06-27 10:53] LABS: POTASSIUM 4.1 mmol/L (3.5-5.1)
[2023-06-27 16:52] VITALS: BP 123/55; PULSE 64; RESP 16; O2SAT 97
== END 2023-06-27 16:54 | disposition home or self-care (01) ==
LOC: EDH 09:15
DX: N60.02 Solitary cyst of left breast (principal); E11.9 Type 2 diabetes mellitus without complications; K21.9 Gastro-esophageal reflux disease without esophagitis; Z88.0 Allergy status to penicillin; Z88.5 Allergy status to narcotic agent; Z88.1 Allergy status to other antibiotic agents; Z85.3 Personal history of malignant neoplasm of breast; Z86.16 Personal history of COVID-19; Z90.49 Acquired absence of other specified parts of digestive tract
CPT/HCPCS: 99285; 96374; 96375; 80048; 85025; 36415; 76641; J3490; J1885; J2765

== ENCOUNTER 2023-10-03 06:00 | Day surgery (SDC) | payer OTHER, MEDICARE ==
[2023-09-28 09:35] LABS: APPEARANCE,URINE CLOUDY (CLEAR); BILIRUBIN,URINE NEGATIVE (NEGATIVE); COLOR,URINE LIGHT-YELLOW (YELLOW); GLUCOSE, URINE (UA) NEGATIVE (NEGATIVE); KETONES,URINE NEGATIVE (NEGATIVE); LEUKOCYTE ESTERASE ,URINE 500 Leu/uL (NEGATIVE); NITRATE,URINE NEGATIVE (NEGATIVE); PROTEIN,URINE 10 mg/dL (NEGATIVE); UROBILINOGEN,URINE 0.2 mg/dL (0.2-1.0)
[2023-09-28 09:42] LABS: ADD UA MICROSCOPIC YES
[2023-09-28 09:45] LABS: BACTERIA,URINE FEW /HPF (None Seen); MUCUS,URINE RARE LPF (None Seen); SQUAMOUS EPITHELIAL CELL,UR MANY /HPF (0-2); WBC CLUMP MOD /HPF (0-1); WBC,URINE TNTC /HPF (0-1)
[2023-09-28 09:47] VITALS: BP 176/88; PULSE 77; RESP 18
[2023-09-28 09:57] LABS: BASOPHILS # (AUTO) 0.05 K/uL (0.00-0.20); BASOPHILS % (AUTO) 0.8 % (0.0-5.0); EOSINOPHILS # (AUTO) 0.25 K/uL (0.00-0.70); EOSINOPHILS % (AUTO) 3.9 % (0.0-8.0); HEMATOCRIT 40.9 % (36-48); IMMATURE GRANULOCYTE ABSOLUTE 0.02 K/uL (0-1); LYMPHOCYTES # (AUTO) 1.6 K/uL (1.0-4.8); LYMPHOCYTES % (AUTO) 24.6 % (21.0-51.0); MEAN CORPUSCULAR HEMOGLOBIN 31.8 pg (27.0-33.0); MEAN CORPUSCULAR HGB CONC 33.5 g/dL (32.0-36.0); MEAN CORPUSCULAR VOLUME 94.9 fL (79-99); MONOCYTES # (AUTO) 0.7 K/uL (0.1-1.0); MONOCYTES % (AUTO) 10.4 % (3.0-13.0); NEUTROPHILS # (AUTO) 3.9 K/uL (1.8-7.7); PLATELET COUNT (AUTO) 155 K/uL (130-400); RED BLOOD CELL COUNT(AUTO) 4.31 MIL/uL (4.00-5.50); RED CELL DISTRIBUTION WIDTH 13.9 % (11.0-15.5); WHITE BLOOD COUNT (AUTO) 6.5 K/uL (4.8-10.8)
[2023-09-28 10:22] LABS: ALBUMIN 3.7 g/dL (3.5-5.0); BILIRUBIN,TOTAL 0.7 mg/dL (0.2-1.0); CREATININE 1.1 mg/dL (0.5-1.5); POTASSIUM 4.4 mmol/L (3.5-5.1)
[~2023-10-03] VITALS: Ht 154.9 cm; Wt 81.4 kg
[2023-10-03] VITALS (12 sets, daily range): BP systolic 109–161; BP diastolic 51–87; PULSE 51–76; RESP 13–16
[~2023-10-03 06:00] MED LIST changes: -IBUP-2077 PO
[2023-10-03] MEDS ORDERED: 0.9%NACL 1000ML 1,000 ML IV ONE (06:51)
[2023-10-03] MEDS ORDERED: LETR2.5T7 PO (07:09)
[2023-10-03] MEDS ORDERED: MAGN400T25 PO (07:09)
[2023-10-03] MEDS ORDERED: GABA-529 PO (07:09)
[2023-10-03] MEDS ORDERED: LIDOCAINE PF 100MG/5ML (2%) SYRINGE 5ML ONE (07:19)
[2023-10-03] MEDS ORDERED: PROPOFOL 10 MG/ML 20ML VIAL IV ONE (07:21)
[2023-10-03] MEDS ORDERED: ROCURONIUM BROMIDE 10MG/1ML 5ML VL ONE (07:21)
[2023-10-03] MEDS ORDERED: MIDAZOLAM HCL 1 MG/ML 2ML VIAL ONE (07:21)
[2023-10-03] MEDS ORDERED: FENTANYL CITRATE PF 50 MCG/1 ML 2ML VIAL ONE (07:22)
[2023-10-03] MEDS ORDERED: ONDANSETRON 4MG INJ ONE (07:24)
[2023-10-03] MEDS ORDERED: BUPIVACAINE/PF 0.25% 30ML VIAL IJ ONE (07:28)
== END 2023-10-03 09:55 | disposition home or self-care (01) ==
LOC: DAH 06:00
PROVIDERS: ATTEND Student in an Organized Health Care Education/Training Program
DX: Z45.2 Encounter for adjustment and management of vascular access device (principal); I89.0 Lymphedema, not elsewhere classified; E11.22 Type 2 diabetes mellitus with diabetic chronic kidney disease; I12.9 Hypertensive chronic kidney disease with stage 1 through stage 4 chronic kidney disease, or unspecified chronic kidney disease; N18.9 Chronic kidney disease, unspecified; E55.9 Vitamin D deficiency, unspecified; J45.909 Unspecified asthma, uncomplicated; Z79.899 Other long term (current) drug therapy; Z85.3 Personal history of malignant neoplasm of breast; Z90.49 Acquired absence of other specified parts of digestive tract; Z98.890 Other specified postprocedural states; Z88.0 Allergy status to penicillin; Z88.6 Allergy status to analgesic agent; Z92.21 Personal history of antineoplastic chemotherapy
CPT/HCPCS: 80053; 85025; 87077; 87088; 87186; 81001; 36415; 36590; 82948 ×2; 88300; 93005; A6260; A4663; A4606; J3010; J7030; J0665; J3490; J2001; J2250; J2704; J2405; A4649; A4215; A4223; A4222; A4221

== ENCOUNTER → 2024-05-30 | Outpatient (CLI) | payer OTHER, MEDICARE ==
[~2024-05-30] MED LIST changes: +GABA-529 PO; +LETR2.5T7 PO; +MAGN400T25 PO; -ROSU5TAB12 PO; +ROSU5TAB43 PO
== END | disposition home or self-care (01) ==
LOC: RAH 12:27
PROVIDERS: ATTEND Student in an Organized Health Care Education/Training Program
DX: N60.01 Solitary cyst of right breast (principal); Z85.3 Personal history of malignant neoplasm of breast

== ENCOUNTER → 2025-06-13 | Outpatient (CLI) | payer OTHER, MEDICARE ==
[~2025-06-13] MED LIST changes: -ROSU5TAB43 PO; +ROSU5TAB51 PO
--- NOTE | 2025-06-18 09:13 | HMCIMG ---
BILATERAL BREAST ULTRASOUND: Finding: Real-time examination of the both breasts demonstrates homogeneous echotexture throughout both the breasts. The right breast at 10:00 there is a hypoechoic nodule measuring 7 x 3 x 6 6 mm which has mildly increased as compared to prior study. The previously seen septated cyst in right breast at 12:00 is not seen. The left breast 11:00 there is a scarring with shadowing and appears to be unchanged measuring 3.4 x 1.1 x 3.4 cm. There is subcutaneous edema noticed between 12 and 8:00. There is benign-appearing left axillary lymph node measuring 0.8 x 0.9 cm. IMPRESSION: Right breast at 10:00 there is a hypoechoic lesion which is slightly increased in size would recommend ultrasound-guided biopsy for further evaluation The remaining mammogram appears to be unchanged. FINAL ASSESSMENT: ACR: BI-RAD -4. Suspicious: Finding(s) without all the characteristics morphology of breast cancer but indicatingadefine probability of being malignant: biopsy should be considered.
--- NOTE | 2025-06-18 09:18 | HMCIMG ---
DIGITAL bilateral breast DIAGNOSTIC MAMMOGRAM Technique: The digital mammographic examination of both breasts in craniocaudal, mediolateral oblique views along with CAD was obtained. Bilateral breast sonogram was also obtained. History: This is a 70 years year-old female 2, para0 Ab2 . Patient has history of left breast cancer patient has had prior lumpectomy with chemotherapy and radiation therapy. Patient has no family history of breast cancer. Patient has no complaint Reference:Prior mammogram from 01/07/2022 is available.. Breast composition: Breast composition C: The breasts are heterogeneously dense, which may obscure small masses. Finding: The digital mammographic examination of both breasts in craniocaudal and mediolateral oblique view along with CAD demonstrates the left breast has postlumpectomy with surgical changes. Both breasts appears to be moderately heterogeneously dense breasts. There are 2 solitary benign macrocalcification in the right breast.. Ultrasound demonstrate a right breast lesion seen at 10:00 which has slightly increased in size. There is no evidence of any dendritic mass, cluster microcalcification or architectural distortion. The retromammary fat appears to be normal. IMPRESSION: Right breast lesion at 10:00 seen on ultrasound is not well seen on mammogram. I would recommend ultrasound-guided biopsy for histological sampling. FINAL ASSESSMENT: ACR: BI-RAD -4. Suspicious: Finding(s) without all the characteristics morphology of breast cancer but indicatingadefine probability of being malignant: biopsy should be considered. NOTE: IF A WORK-UP OF THIS PATIENT LEADS TO A BIOPSY, PLEASE FORWARD A COPY OF THE PATHOLOGY REPORT TO OUR OFFICE REQUIRED BY [facility] E[facility]ECT[facility] JULY 17, 1994. A NEGATIVE MAMMOGRAM SHOULD NOT PRECLUDE BIOPSY OF A CLINICALLY PALPABLE SUSPICIOUS MASS, 10% OF BREAST CANCERS ARE MAMMOGRAPHICALLY OCCULT. THIS MAMMOGRAPHY FACILITY IS FULLY ACCREDITED BY THE FOOD AND DRUG ADMINISTRATION (FDA). THANK YOU FOR THIS REFERRAL.
== END | disposition home or self-care (01) ==
LOC: RAH 13:05
PROVIDERS: ATTEND Student in an Organized Health Care Education/Training Program
DX: C50.912 Malignant neoplasm of unspecified site of left female breast (principal); N63.11 Unspecified lump in the right breast, upper outer quadrant; N64.89 Other specified disorders of breast; R92.333 Mammographic heterogeneous density, bilateral breasts; R92.0 Mammographic microcalcification found on diagnostic imaging of breast; R60.0 Localized edema; Z85.3 Personal history of malignant neoplasm of breast
CPT/HCPCS: 77066

== ENCOUNTER 2025-09-28 12:12 | Emergency (ER) | payer OTHER, MEDICARE ==
[~2025-09-28] VITALS: Ht 154.9 cm; Wt 79.4 kg
--- NOTE | 2025-09-28 12:22 | ERN ---
ED Note History of Present Illness Stated Complaint: SOB Chief Complaint: Shortness of Breath Time Seen by MD: 12:17 Dictation: PATIENT IS A 70-YEAR-OLD FEMALE COMING IN WITH BODY ACHES COUGH DRY WITH MILD SOB SHE SAID THE HOWEVER DIABETES PATIENT. SHE STATES HER PRIMARY CARE DOCTOR WAS . SAW HIM YESTERDAY AND WAS DIAGNOSED WITH COVID-19 AFTER A SWAB AND WAS PROVIDED WITH A Z-JEANNIE ONL NO OTHER MEDICATIONS PRESCRIBED. PATIENT IS COMPLAINING OF MILD SOB IN WANTS SOMETHING FOR COUGH. Allergies: Coded Allergies: Penicillins (Unverified Allergy, Unknown, 06/01/20) ceftriaxone (Unverified Allergy, Unknown, 05/07/22) codeine (Unverified Allergy, Unknown, 06/01/20) Home Meds Reported Medications Magnesium Oxide (Mag-Oxide) 400 Mg (241.3 Mg Magnesium) Tablet, 400 MG PO BID, TAB 10/03/23 Gabapentin (Gabapentin) 100 Mg Capsule, 200 MG PO TID, CAP 10/03/23 Letrozole (Letrozole) 2.5 Mg Tablet, 2.5 MG PO DAILY, TAB 10/03/23 Rosuvastatin Calcium (Rosuvastatin Calcium) 5 Mg Tablet, PO HS, TAB 05/07/22 Dulaglutide (Trulicity) 0.75 Mg/0.5 Ml Pen.injctr, SQ QWEEK 05/07/22 Past Medical History Past Medical History: Cancer, Diabetes-Type II, GERD, Other Additional Past Medical Hx: COVID 12/2019, obesity, HX OF BREAST CA Surgical History: Cholecystectomy, Other Surgical History Other: BREAT LUMPECTOMY Family History: Negative Social History: Negative History: Not Applicable RN Note Reviewed/Agreed w/PFSH: Yes Review of System Dictation CONSTITUTIONAL: NEGATIVE EXCEPT FOR HPI HEAD/FACE: NEGATIVE EXCEPT FOR HPI EENT: NEGATIVE EXCEPT FOR HPI RESPIRATORY: NEGATIVE EXCEPT FOR HPI SOB/DRY COUGH GASTROINTESTINAL/ABDOMINAL: NEGATIVE EXCEPT FOR HPI GENITOURINARY: NEGATIVE EXCEPT FOR HPI MUSCULOSKELETAL: NEGATIVE EXCEPT FOR HPI INTEGUMENTARY: NEGATIVE EXCEPT FOR HPI NEUROLOGICAL/PSYCH: NEGATIVE EXCEPT FOR HPI HEMATOLOGIC/LYMPHATIC: NEGATIVE EXCEPT FOR HPI ALL SYSTEMS NEGATIVE, EXCEPT NOTED ABOVE. 13 POINT REVIEW OF SYSTEMS ASSESSED AND ALL NEGATIVE EXCEPT FOR ABOVE. Initial Vital Sign VS Vital Signs Date Time Temp Pulse Resp B/P (MAP) Pulse Ox O2 Delivery O2 Flow Rate FiO2 09/28/25 12:14 97.2 93 18 140/80 98 Room Air 09/28/25 12:23 0 21 Physical Exam Dictation VITAL SIGNS REVIEWED GENERAL APPEARANCE: ALERT, ORIENTED X 3, MILD ACUTE DISTRESS, WELL DEVELOPED, NOURISHED. HEAD AND FACE: NON-TRAUMATIC. EYES: PERRL, PINK CONJUNCTIVAS, EYELID NO TRAUMA, ANTERIOR CHAMBER WITH ARCUS SENILIS. EARS: PINNAS INTACT AND NO SIGNS OF TRAUMA OR ERYTHEMA EAR CANALS CLEAR AND NO DISCHARGE TM NO ERYTHEMA NOSE: NO DISCHARGE, NO BLEEDING. OROPHARYNX: MOUTH NORMAL, TONGUE PINK, PHARYNX CLEAR,NO ERYTHEMA, TONSILS NO EXUDATES, NO ABSCESSES NOTED, MUCOUS MEMBRANE MOIST NECK: SUPPLE, NON-TENDER, NO THYROMEGALY, NO MASSES, NO JVD, NO BRUITS BREAST:DEFERRED CHEST:NO TENDERNESS, NO CREPITUS, NO PARADOXICAL MOVEMENT, NO RETRACTIONS LUNGS:CLEAR, WELL-VENTILATED, SYMMETRIC, NO RALES, NO WHEEZING, NO RHONCHI, NO STRIDOR, GOOD BREATH SOUNDS BILATERALLY IS/NO RETRACTIONS HEART: REGULAR RATE, REGULAR RHYTHM, NO MURMUR, NO GALLOPS VASCULAR: NO PERIPHERAL EDEMA, ABDOMEN: SOFT, POSITIVE BOWEL SOUNDS, NONDISTENDED, NO GUARDING, NONTENDER, NO REBOUND, NO MASSES NO HEPATOMEGALY, NO SPLENOMEGALY, NO ELLSWORTH'S SIGN, NO HERNIAS. RECTAL: DEFERRED GENITAL: DEFERRED NEUROLOGICAL: NORMAL SPEECH, MOTOR FUNCTION INTACT, SENSORY FUNCTION INTACT MUSCULOSKELETAL: NECK NONTENDER, FULL RANGE OF MOTION, BACK NONTENDER, FULL RANGE OF MOTION, EXTREMITIES: NONTENDER, FULL RANGE OF MOTION SKIN: COLOR PINK, DRY, NO TURGOR, NO RASH, NO LACERATIONS, NO ABRASIONS, NO CONTUSIONS. LYMPHATIC: DEFERRED Results (Laboratory/Radiology) Laboratory/Radiology Laboratory Tests Test 09/28/25 12:26 White Blood Count 6.8 K/uL (4.8-10.8) Red Blood Count 4.57 MIL/uL (4.00-5.50) Hemoglobin 14.2 g/dL (12.0-16.0) Hematocrit 43.8 % (36-48) Mean Corpuscular Volume 95.8 fL (79-99) Mean Corpuscular Hemoglobin 31.1 pg (27.0-33.0) Mean Corpuscular Hemoglobin Concent 32.4 g/dL (32.0-36.0) Red Cell Distribution Width 14.0 % (11.0-15.5) Platelet Count 149 K/uL (130-400) Mean Platelet Volume 9.6 fL (7.5-10.5) Immature Granulocyte % (Auto) 0.2 % (0-1) Neutrophils (%) (Auto) 58.7 % (40.0-77.0) Lymphocytes (%) (Auto) 26.7 % (21.0-51.0) Monocytes (%) (Auto) 11.7 % (3.0-13.0) Eosinophils (%) (Auto) 2.2 % (0.0-8.0) Basophils (%) (Auto) 0.5 % (0.0-5.0) Neutrophils # (Auto) 3.7 K/uL (1.8-7.7) Lymphocytes # (Auto) 1.7 K/uL (1.0-4.8) Monocytes # (Auto) 0.7 K/uL (0.1-1.0) Eosinophils # (Auto) 0.14 K/uL (0.00-0.70) Basophils # (Auto) 0.03 K/uL (0.00-0.20) Absolute Immature Granulocyte (auto 0.01 K/uL (0-1) Nucleated Red Blood Cells 0.0 % (0.0-0.19) Sodium Level 141 mmol/L (136-145) Potassium Level 4.3 mmol/L (3.5-5.1) Chloride Level 105 mmol/L (101-111) Carbon Dioxide Level 26 mmol/L (21-32) Blood Urea Nitrogen 21 mg/dL (7-18) H Creatinine 1.4 mg/dL (0.5-1.0) H Glomerular Filtration Rate Calc 41 mL/min (>90) Random Glucose 119 mg/dL (70-105) H Total Calcium 9.4 mg/dL (8.5-10.1) 1412/CHEST X-RAY NEGATIVE Labs Reviewed?: Yes ED Course ED Course Orders Procedure Category Date Status Time Ibuprofen 600 Mg PHA 09/28/25 Complete Tablet (Motrin) 12:30 Dexamethasone 4mg/Ml PHA 09/28/25 Complete 1ml Vial (Dexametha 12:30 Chest 1vw RAD 09/28/25 Taken 12:17 Albuterol 0.083% PHA 09/28/25 Complete 2.5mg/3ml (Proventil 12:30 Basic Metabolic Panel LAB 09/28/25 Complete 12:17 Cbc With Differential LAB 09/28/25 Complete 12:26 Current Medications Medications (Trade) Dose Ordered Sig/Manasa Route PRN Reason Start Time Stop Time Status Last Admin Dose Admin Albuterol Sulfate (Proventil 0.083% 2.5mg/3ml) 2.5 mg ONCE ONCE IH 09/28/25 12:30 09/28/25 12:31 DC 09/28/25 12:38 Dexamethasone Sodium Phosphate (dexaMETHasone 4MG/ML 1ML VIAL) 8 mg ONCE ONCE IM 09/28/25 12:30 09/28/25 12:31 DC 09/28/25 12:42 Ibuprofen (moTRIN) 600 mg ONCE ONCE PO 09/28/25 12:30 09/28/25 12:31 DC 09/28/25 12:41 Vital Signs Date Time Temp Pulse Resp B/P (MAP) Pulse Ox O2 Delivery O2 Flow Rate FiO2 09/28/25 12:35 93 18 09/28/25 12:23 97.2 93 18 140/80 98 Room Air* 0 21 09/28/25 12:14 97.2 93 18 140/80 98 Room Air 1412/PATIENT STATES SHE FEELS MARKEDLY IMPROVED AFTER TREATMENT. SATURATING 99- 100% ON ROOM AIR. WE WILL DISCHARGE PATIENT HOME Medical Decision Making MDM MEDICAL DECISION-MAKING BASED ON CHEST X-RAY AND BASIC LABS FOR COUGH AND SOB. CHEST X-RAY NEGATIVE LABS ARE COMPLETELY UNREMARKABLE PATIENT DISCHARGED HOME WITH COUGH AND POSITIVE COVID-19 INFECTION GIVEN MEDROL DOSEPAK/TESSALON/ALBUTEROL TO SEE HER PRIMARY CARE DOCTOR ON TUESDAY OR TUESDAY FOR FOLLOW UP AND MANAGE DX & DISP Disposition: Discharge Departure Impression: Primary Impression: Cough Additional Impression: COVID-19 virus infection Condition: Stable Scripts Benzonatate (Tessalon Perles) 100 Mg Cap 200 MG PO TID for cough, #60 CAP 0 Refills Prov: LILLI LANGLEY 09/28/25 Methylprednisolone (Medrol) 4 Mg Tab.ds.pk 1 TAB PO AD for 6 Days, #21 TAB 0 Refills 6 on day 1 then reduce by one tablet daily until gone Prov: LILLI LANGLEY 09/28/25 Albuterol Sulfate (Ventolin Hfa/Proventil Hfa/Proair Hfa) 90 Mcg Puff 2 PUFF IH Q4H PRN for SHORTNESS OF BREATH/WHEEZING for 30 Days, #1 INH 0 Refills Prov: LILLI LANGLEY 09/28/25 Additional Instructions: FOLLOW-UP WITH PRIMARY CARE PROVIDER IN 1 TO 2 DAYS. TAKE MEDICATIONS DIRECTED HERE IN THE EMERGENCY ROOM. OKAY TO CONTINUE HOME MEDICATIONS UNLESS OTHERWISE DISCUSSED DURING YOUR VISIT IN THE EMERGENCY ROOM TODAY. RETURN TO YOUR NEAREST EMERGENCY ROOM IF SYMPTOMS WORSEN OR IF THERE IS NO IMPROVEMENT. CALL 911 IF YOU NEED IMMEDIATE ASSISTANCE. TAKE TYLENOL OR MOTRIN [id number] NEEDED AND IF NO CONTRAINDICATIONS ARE PRESENT. INCREASE ORAL HYDRATION. A WOUND CULTURE OR URINE CULTURE WAS ORDERED HERE IN THE EMERGENCY ROOM DEPARTMENT PLEASE FOLLOW-UP WITH PRIMARY CARE PROVIDER AND ADVISE THEM TO GET REPEAT PORTS FROM OUR FACILITY. IF YOU HAD ANY ZANDER WRAP/SPLINTS THAT WERE APPLIED HERE, PLEASE DO NOT REMOVE THEM UNTIL YOU SEE YOUR PRIMARY CARE OR SPECIALTY. CONTINUE AZITHROMYCIN DIRECTED FROM YOUR DOCTOR UNTIL GONE. USE ALBUTEROL INHALER EVERY4 HOURS WHILE AWAKE FOR THE NEXT TWO DAYS. TAKE MEDROL DOSEPAK DIRECTED UNTIL GONE TAKE TESSALON EVERY 8 HOURS NEEDED FOR YOUR COUGH INCREASE YOUR WATER INTAKE. SEE YOUR PRIMARY CARE DOCTOR ON TUESDAY OR TUESDAY FOR FOLLOW UP AND MANAGEMENT Referrals: KAMILA LANZA MD (PCP) Time of Disposition: 14:15 I have reviewed the case, and I agree with, Diagnosis and Plan LILLI LANGLEY Sep 28, 2025 12:22
[2025-09-28 12:33] LABS: NUCLEATED RED BLOOD CELLS 0.0 % (0.0-0.19); PLATELET COUNT (AUTO) 149 K/uL (130-400); RED BLOOD CELL COUNT(AUTO) 4.57 MIL/uL (4.00-5.50); RED CELL DISTRIBUTION WIDTH 14.0 % (11.0-15.5); WHITE BLOOD COUNT (AUTO) 6.8 K/uL (4.8-10.8)
[2025-09-28 12:35] VITALS: PULSE 93; RESP 18
[2025-09-28] MEDS: ALBUTEROL 0.083% 2.5 MG/3 ML INH IH ONE (12:38)
[2025-09-28 12:41] LABS: CREATININE 1.4 mg/dL (0.5-1.0); GLOMERULAR FILTR. RATE CALC 41.0 mL/min (>90); GLUCOSE,RANDOM 119.0 mg/dL (70-105); SODIUM SERUM 141.0 mmol/L (136-145); UREA NITROGEN, BLOOD 21.0 mg/dL (7-18)
[2025-09-28 12:49] LABS: IMMATURE GRANULOCYTE ABSOLUTE 0.01 K/uL (0-1)
[2025-09-28 14:23] VITALS: BP 134/74; PULSE 88; RESP 18; TEMP 97.2; O2SAT 98
--- NOTE | 2025-09-28 14:53 | HMCIMG ---
EXAM: CR Chest, 1 View. CLINICAL HISTORY: SHORTNESS A BREATH/CHEST PAIN. COVID-19 POSITIVE COMPARISON: None provided. FINDINGS: LUNGS: The lungs show no infiltrate or other acute finding. PLEURAL SPACES: No pleural effusion or pneumothorax. MEDIASTINUM: Cardiac size and mediastinal contours within normal limits. BONES: No aggressive appearing osseous lesion seen. IMPRESSION: No acute cardiopulmonary pathology is evident. /[place]
== END 2025-09-28 14:24 | disposition home or self-care (01) ==
LOC: EDH 12:12
DX: U07.1 COVID-19 (principal); R05.9 Cough, unspecified; E11.9 Type 2 diabetes mellitus without complications; K21.9 Gastro-esophageal reflux disease without esophagitis; E66.9 Obesity, unspecified; Z88.5 Allergy status to narcotic agent; Z88.0 Allergy status to penicillin; Z88.1 Allergy status to other antibiotic agents; Z79.899 Other long term (current) drug therapy; Z79.811 Long term (current) use of aromatase inhibitors; Z85.3 Personal history of malignant neoplasm of breast; Z86.16 Personal history of COVID-19; Z90.49 Acquired absence of other specified parts of digestive tract; Z68.33 Body mass index [BMI] 33.0-33.9, adult
CPT/HCPCS: 99284; 71045; 80048; 85025; 36415; 96372; 94640; J1100